=== PATIENT | female | born 1970 | race Caucasian/White ===

== ENCOUNTER 2016-06-19 13:03 | Emergency (ER) | payer OTHER ==
[~2016-06-19 13:03] MED LIST: FOLIC ACID 1 MG1 MG PO
== END 2016-06-19 14:35 | disposition home or self-care (01) ==
LOC: ER1 13:03
DX: S93.402A Sprain of unspecified ligament of left ankle, initial encounter (principal); S83.92XA Sprain of unspecified site of left knee, initial encounter; E11.9 Type 2 diabetes mellitus without complications; I10 Essential (primary) hypertension; E78.5 Hyperlipidemia, unspecified; E66.01 Morbid (severe) obesity due to excess calories; W19.XXXA Unspecified fall, initial encounter; Z79.84 Long term (current) use of oral hypoglycemic drugs; Z79.899 Other long term (current) drug therapy
CPT/HCPCS: 73564; 73610; 99283

== ENCOUNTER 2016-08-25 22:26 | Emergency (ER) | payer OTHER | END 2016-08-25 23:33 | disposition home or self-care (01) | LOC: ER1 22:26 | DX: R51 Headache (principal); E11.9 Type 2 diabetes mellitus without complications; Z79.84 Long term (current) use of oral hypoglycemic drugs; Z79.4 Long term (current) use of insulin; Z88.0 Allergy status to penicillin; Z88.5 Allergy status to narcotic agent | CPT/HCPCS: 96372; 99283; J1885 ==

== ENCOUNTER → 2020-08-18 | Outpatient (CLI) | payer OTHER ==
[~2020-08-18] MED LIST changes: +ABILIFY15 MG PO; +ASPIRIN EC81 MG PO; +BASAGLAR K100 UNIT/1 SC; +DULOXETINE HCL60 MG PO; +FUROSEMIDE40 MG PO; +GABAPENTIN800 MG PO; +GLIPIZIDE ER5 MG PO; +LISINOPRIL-HCT1 EAC1 PO; +LISINOPRIL10 MG PO; +LOPRESSOR 25 MG25 MG PO; +LOPRESSOR 50 MG50 MG GT; +METFORMIN HCL1000 MG PO; +MONTELUKAST SOD10 MG PO; +POTASSIUM CHLO10 MEQ PO; +PROAIR HFA8.5 GM INH; +QVAR REDIHALE10.6 G1 INH; +ROPINIROLE HCL5 MG PO; +SIMVASTATIN20 MG PO; +VENTOLIN HFA 66.7 GM INH
[2020-08-18 10:24] LABS: RED BLOOD COUNT 4.52 M/UL (4.00-5.10); WHITE BLOOD COUNT 8.1 K/UL (4.5-11.0)
[2020-08-18 10:44] LABS: BUN/CREATININE RATIO 32 (0-10)
[2020-08-19 08:14] LABS: VITAMIN D, 25-HYDROXY 15.4 ng/mL (30.0-100.0)
[2020-08-19 11:14] LABS: INSULIN 29.3 uIU/mL (2.6-24.9)
== END ==
LOC: LAB 08:56
PROVIDERS: Nurse Practitioner Family
DX: Z79.4 Long term (current) use of insulin (principal); R94.31 Abnormal electrocardiogram [ECG] [EKG]
CPT/HCPCS: 36415; 71046; 80053; 80061; 82607; 83036; 84443; 85025; 93005

== ENCOUNTER 2021-01-04 23:43 | Emergency (ER) | payer OTHER ==
[2021-01-05] MEDS ORDERED: PYRIDIUM200 MG PO (02:42)
[2021-01-05] MEDS ORDERED: NORFLEX 100 MG100 MG PO (02:42)
[2021-01-05] MEDS ORDERED: BACTRIM 400-801 EACH PO (02:42)
== END 2021-01-05 02:45 | disposition home or self-care (01) ==
LOC: ER1 23:43
DX: S29.012A Strain of muscle and tendon of back wall of thorax, initial encounter (principal); N39.0 Urinary tract infection, site not specified; E11.9 Type 2 diabetes mellitus without complications; I48.91 Unspecified atrial fibrillation; I10 Essential (primary) hypertension; J44.9 Chronic obstructive pulmonary disease, unspecified; Z88.1 Allergy status to other antibiotic agents; Z88.0 Allergy status to penicillin; Z88.5 Allergy status to narcotic agent; Z79.899 Other long term (current) drug therapy; X58.XXXA Exposure to other specified factors, initial encounter
CPT/HCPCS: 81001; 96372; 99283; J1885

== ENCOUNTER 2021-01-16 18:00 | Emergency (ER) | payer OTHER ==
[~2021-01-16 18:00] MED LIST changes: +BACTRIM 400-801 EACH PO; +NORFLEX 100 MG100 MG PO; +PYRIDIUM200 MG PO
[2021-01-16 18:49] LABS: HEMOGLOBIN 13.9 gm/dl (12.3-15.3); RED BLOOD COUNT 4.43 M/UL (4.00-5.10); WHITE BLOOD COUNT 9.3 K/UL (4.5-11.0)
[2021-01-16 19:04] LABS: BUN/CREATININE RATIO 38 (0-10)
== END 2021-01-16 22:45 | disposition home or self-care (01) ==
LOC: ER1 18:00
PROVIDERS: Physician Assistant
DX: E87.5 Hyperkalemia (principal); E11.9 Type 2 diabetes mellitus without complications; J44.9 Chronic obstructive pulmonary disease, unspecified; I10 Essential (primary) hypertension; Z90.89 Acquired absence of other organs; Z88.0 Allergy status to penicillin; Z88.2 Allergy status to sulfonamides; Z88.1 Allergy status to other antibiotic agents
CPT/HCPCS: 80053; 83735; 85025; 99283

== ENCOUNTER 2021-02-05 22:15 | Inpatient (IN) | payer OTHER ==
[~2021-02-05] VITALS: Ht 162.6 cm; Wt 167.0 kg
[~2021-02-05 22:15] MED LIST changes: -BASAGLAR K100 UNIT/1 SC
[2021-02-05 23:01] LABS: HEMOGLOBIN 13.3 gm/dl (12.3-15.3); RED BLOOD COUNT 4.18 M/UL (4.00-5.10); WHITE BLOOD COUNT 9.2 K/UL (4.5-11.0)
[2021-02-06] MEDS ORDERED: OMNICEF 300 MG300 MG PO (02:16)
[2021-02-07 10:18] LABS: HEMOGLOBIN 12.1 gm/dl (12.3-15.3); RED BLOOD COUNT 3.84 M/UL (4.00-5.10)
[2021-02-07] MEDS ORDERED: DRISDOL1250 MCG PO (11:01)
[2021-02-07] MEDS ORDERED: IBU800 MG PO (11:01)
[2021-02-07] MEDS ORDERED: FARXIGA5 MG PO (11:02)
[2021-02-07] MEDS ORDERED: SUMATRIPTAN SUC25 MG PO (11:03)
[2021-02-07] MEDS ORDERED: TYLENOL EXTRA500 MG PO (11:04)
[2021-02-07] MEDS ORDERED: BASAGLAR K100 UNIT/1 SC (15:56)
--- NOTE | 2021-02-07 18:04 | NUR ---
PATIENT REFUSING TO WEAR SCUDS AT THIS TIME.
[2021-02-08 06:56] LABS: HEMOGLOBIN 11.6 gm/dl (12.3-15.3); RED BLOOD COUNT 3.84 M/UL (4.00-5.10); WHITE BLOOD COUNT 6.8 K/UL (4.5-11.0)
[2021-02-08 07:14] LABS: BUN/CREATININE RATIO 35 (0-10)
== END 2021-02-08 14:32 | disposition home or self-care (01) | DRG 189 ==
LOC: ER1 22:15 → CDU 02-07 12:04 → MED SURG 4 02-07 12:04 → ZEROF 02-07 12:20 → CDU 02-07 12:21 → MED SURG 4 02-07 12:50
PROVIDERS: Emergency Medicine; Nurse Practitioner; Physician Assistant; ADMIT Internal Medicine
PROC: 5A09457 Assistance with Respiratory Ventilation, 24-96 Consecutive Hours, Continuous Positive Airway Pressure (ICD-10-PCS; principal; 2021-02-06)
DX: J96.22 Acute and chronic respiratory failure with hypercapnia (principal); N17.9 Acute kidney failure, unspecified; I50.32 Chronic diastolic (congestive) heart failure; Z20.822 Contact with and (suspected) exposure to COVID-19; E87.2 Acidosis; E66.2 Morbid (severe) obesity with alveolar hypoventilation; Z68.44 Body mass index [BMI] 60.0-69.9, adult; J44.9 Chronic obstructive pulmonary disease, unspecified; E11.9 Type 2 diabetes mellitus without complications; E78.5 Hyperlipidemia, unspecified; I48.91 Unspecified atrial fibrillation; G47.33 Obstructive sleep apnea (adult) (pediatric); J96.21 Acute and chronic respiratory failure with hypoxia; K76.0 Fatty (change of) liver, not elsewhere classified; Z98.84 Bariatric surgery status; Z79.01 Long term (current) use of anticoagulants; Z79.4 Long term (current) use of insulin; Z79.82 Long term (current) use of aspirin
CPT/HCPCS: 36415; 36600; 70450; 71045; 80053; 81001; 82550; 82553; 82803; 82962; 83605; 83874; 83880; 84484; 85025; 85379; 85652; 85730; 86140; 87040; 87086; 93005; 94640; 94660; 94760; 96374; 99285; J0780; J1644; J1650; J1885; J2405; J7030; Q9967; U0002

== ENCOUNTER → 2021-02-19 | Outpatient (CLI) | payer OTHER ==
[~2021-02-19] MED LIST changes: +BASAGLAR K100 UNIT/1 SC; +DRISDOL1250 MCG PO; +FARXIGA5 MG PO; +IBU800 MG PO; +OMNICEF 300 MG300 MG PO; +SUMATRIPTAN SUC25 MG PO; +TYLENOL EXTRA500 MG PO
[2021-02-19 13:38] LABS: RED BLOOD COUNT 4.5 M/UL (4.00-5.10); WHITE BLOOD COUNT 8.4 K/UL (4.5-11.0)
[2021-02-19 14:05] LABS: BUN/CREATININE RATIO 19 (0-10)
== END ==
LOC: LAB 12:01
PROVIDERS: Nurse Practitioner Family
DX: E11.8 Type 2 diabetes mellitus with unspecified complications (principal); I10 Essential (primary) hypertension; R91.8 Other nonspecific abnormal finding of lung field; J98.11 Atelectasis
CPT/HCPCS: 36415; 71046; 80053; 80061; 83036; 84443; 85025; 93005

== ENCOUNTER 2021-04-25 12:14 | Emergency (ER) | payer OTHER ==
[2021-04-25] MEDS ORDERED: ALBUTEROL0.63 MG/3 INH (14:58)
== END 2021-04-25 15:00 | disposition home or self-care (01) ==
LOC: ER1 12:14
DX: J06.9 Acute upper respiratory infection, unspecified (principal); I10 Essential (primary) hypertension; J44.9 Chronic obstructive pulmonary disease, unspecified; E11.40 Type 2 diabetes mellitus with diabetic neuropathy, unspecified; Z20.822 Contact with and (suspected) exposure to COVID-19; Z88.1 Allergy status to other antibiotic agents; Z88.5 Allergy status to narcotic agent; Z88.0 Allergy status to penicillin
CPT/HCPCS: 71045; 99283; U0002